=== PATIENT | male | born 1930 | race Caucasian/White ===

== ENCOUNTER 2016-08-10 12:28 | Inpatient (IN) | payer MEDICARE ==
[2016-08-10] MEDS ORDERED: Sodium Chloride 0.9% 1000 ML 1,000 ML IV SCH (12:45)
[2016-08-10 12:52] LABS: BASOPHIL % 0.9 % (0.0-0.4); Eosinophil % 7.1 % (0.00-5.0); Granulocytes % 64.5 % (36.0-66.0); Lymphocytes % 17.4 % (24.0-44.0); Mean Cell Volume 87.8 fl (78-100); Mean Corpuscular Hemoglobin 30.6 pg (26-32); Mean Platelet Volume 9.6 fl (6-9.5); Monocytes % 10.1 % (0.0-12.0); Platelet Count 185 K/mm3 (150-450); Red Blood Count 4.35 M/mm3 (4.1-5.6); Red Cell Distribution Width 13.3 % (11.5-14.0); White Blood Count 5.8 K/mm3 (4.0-10.5)
[2016-08-10] MEDS ORDERED: Sodium Chloride 0.9% 1000 ML 1,000 ML ONE (13:04)
--- NOTE | 2016-08-10 13:04 | ERPHSYRPT ---
- History of Present Illness Time Seen by Provider: 08/10/16 12:31 Source: patient, family (daughter) Patient Subjective Stated Complaint: SOB FOR THREE WEEKS ONLY ON EXERTION. ALSO HAVING DIFFICULTY SWALLOWING. HX HIATAL HERNIA. Triage Nursing Assessment: TO ROOM PER WC WITH DAUGHTER. SKIN DRY, PALE, LOOSE. ALSO HAVING DIZZINESS WITH STANDING. DAUGHTER STATES PATIENT RECENTLY HAVING DIFFICULTY SWALLOWING AND HAS BEEN UNABLE TO EAT FOR TWO DAYS. SCHEDULED TO SEE DR. ARREDONDO THIS TUESDAY FOR EXAM AND POSSIBLE EGD SOON. Physician History: CC: dizzy Hx: 86 y/o patient of Dr Valentino Villa. He has hx of "hiatal hernia." For the past three weeks has been unable to swallow almost anything, including liquids. He feels some weakness, some dizziness when upright, and short of breath when he is upright. Remote lung CA not treated which resolved. Has not had barium swallow nor EGD. Was planning to see Dr Moreno to arrange EGD but got to weak. Daughter feels he is dehydrated. Losing weight. No chest pain. Not particularly short of breath. No fever or chills. Timing/Duration: week(s) (few) Allergies/Adverse Reactions: No Known Drug Allergies Allergy (Unverified 08/10/16 12:52) Home Medications: Aspirin 81 gm Chew [Baby Aspirin 81 mg Chew] 81 mg PO DAILY 08/10/16 [ History] Famotidine [Pepcid] 40 mg PO HS 08/10/16 [History] Omeprazole 40 mg PO DAILY 08/10/16 [History] Pregabalin [Lyrica] 75 mg PO BID 08/10/16 [History] Tamsulosin HCl 0.4 mg [Flomax 0.4 MG] 0.4 mg PO DAILY 08/10/16 [History] Triamterene/Hydrochlorothiazid [Triamterene-Hctz 37.5-25 mg Tb] 1 each PO DAILY 08/10/16 [History] Hx Tetanus, Diphtheria Vaccination/Date Given: No Hx Influenza Vaccination/Date Given: No Hx Pneumococcal Vaccination/Date Given: No - Review of Systems Constitutional: Fatigue, Malaise, Weakness, Weight Loss, No Fever, No Chills Eyes: No Symptoms Ears, Nose, & Throat: No Symptoms Respiratory: Dyspnea (when upright), No Cough Cardiac: No Chest Pain, No Edema, No Palpitations, No Syncope Abdominal/Gastrointestinal: Vomiting (when tries to eat or drink), Dysphagia, Appetite Changes, No Nausea Genitourinary Symptoms: No Symptoms Musculoskeletal: No Symptoms Skin: No Rash Neurological: No Focal Weakness, No Headache All Other Systems: Reviewed and Negative - Past Medical History Pertinent Past Medical History: Yes ENT History: Cataracts Cardiac History: Aneurysm Respiratory History: Lung Cancer Musculoskeletal History: Other GI Medical History: Gallbladder Disease, Hemorrhoids, Hernia, Other - Past Surgical History Past Surgical History: Yes Cardiac: Vascular Surgery Gastrointestinal: Cholecystectomy, Hemorrhoidectomy, Hernia Repair Musculoskeletal: Orthopedic Surgery Other Surgical History: HIATAL HERNIA REPAIR, LEFT SHOULDER REPAIR, TUBES IN EARS, AAA STENT, NEURO-STIMULATOR, - Social History Smoking Status: Current every day smoker How long have you smoked: 73 Exposure to second hand smoke: No Drug Use: none Patient Lives Alone: Yes - Nursing Vital Signs Nursing Vital Signs: Initial Vital Signs Temperature Source Oral Pulse Rate 74 Respiratory Rate 18 Blood Pressure [Right Arm] 145/75 Pain Intensity 0 - Physical Exam General Appearance: alert, other (pleasant elderly man, hard o hearing) Eye Exam: PERRL/EOMI Ears, Nose, Throat Exam: dry mucous membranes Neck Exam: normal inspection, supple Respiratory Exam: crackles/rales (bases), No respiratory distress, No wheezing Cardiovascular Exam: regular rate/rhythm Gastrointestinal/Abdomen Exam: soft, No tenderness, No distention, No guarding Back Exam: normal inspection Extremity Exam: normal inspection, normal range of motion Neurologic Exam: alert, oriented x 3, cooperative, No motor deficits Skin Exam: warm, dry, No rash SpO2 Interpretation: normal SpO2: 94 Oxygen Delivery: Room Air - Course Nursing assessment & vital signs reviewed: Yes - Radiology Exams AAS X-ray Interpretation: Teleradiologist Report, Negative Ordered Tests: Active Orders 24 hr Category Date Time Status Box Printing Machine Operator STAT Care 08/10/16 13:14 Ordered Clean Catch Urine Specimen STAT Care 08/10/16 12:39 Active EKG-ER Only STAT Care 08/10/16 12:39 Active IV Insertion STAT Care 08/10/16 12:39 Active Orthostatic Vital Signs STAT Care 08/10/16 12:39 Active OBSTR/ACUTE ABDOMEN SERIES Stat Exams 08/10/16 12:40 Completed CBC W DIFF Stat Lab 08/10/16 12:45 Completed CMP Stat Lab 08/10/16 12:45 Received MAGNESIUM Stat Lab 08/10/16 13:13 Ordered TROPONIN Stat Lab 08/10/16 12:45 Received UA Stat Lab 08/10/16 12:39 Ordered Medication Summary Generic Name Dose Route Start Last Admin Trade Name Lonnie PRN Reason Stop Dose Admin Sodium Chloride 1,000 mls @ 100 mls/hr 08/10/16 12:45 Sodium Chloride 0.9% 1000 Ml IV 09/09/16 12:44 .Q10H ANISHA Potassium Chloride 100 mls @ 50 mls/hr 08/10/16 13:15 Potassium Chloride 20 Meq In Water 100ml IV 08/10/16 15:14 STAT ONE Lab/Rad Data: Laboratory Result Diagrams 08/10/16 12:45 08/10/16 12:45 Laboratory Results 08/10/16 08/10/16 Range/Units 12:45 12:45 WBC 5.8 (4.0-10.5) K/mm3 RBC 4.35 (4.1-5.6) M/mm3 Hgb 13.3 (12.5-18.0) gm/dl Hct 38.2 L (42-50) % MCV 87.8 (78-100) fl MCH 30.6 (26-32) pg MCHC 34.8 (32-36) g/dl RDW 13.3 (11.5-14.0) % Plt Count 185 (150-450) K/mm3 MPV 9.6 H (6-9.5) fl Gran % 64.5 (36.0-66.0) % Lymphocytes % 17.4 L (24.0-44.0) % Monocytes % 10.1 (0.0-12.0) % Eosinophils % 7.1 H (0.00-5.0) % Basophils % 0.9 (0.0-0.4) % Basophils # 0.05 (0-0.4) Sodium 131 L (136-145) mEq/L Potassium 2.7 L* (3.5-5.1) mEq/L Chloride 93 L (98-107) mEq/L Carbon Dioxide 32.0 (21-32) mEq/L Anion Gap 9.4 (5-15) MEQ/L BUN 25 H (9-20) mg/dL Creatinine 2.00 H (0.55-1.30) mg/dl Estimated GFR 34 ML/MIN Glucose 113 H (70-110) MG/DL Calcium 10.4 H (8.5-10.1) mg/dL Total Bilirubin 0.6 (0.2-1.0) mg/dL AST 23 (15-37) U/L ALT 12 (12-78) U/L Alkaline Phosphatase 89 (46-116) U/L Serum Total Protein 8.4 H (6.4-8.2) gm/dL Albumin 3.8 (3.4-5.0) g/dL - Progress Progress Note: 08/10/16 13:24 The patient is stable. Unable to complete 12 lead due to nerve stimulator implant. Called Dr Pennington for Dr Villa. Will admit to IP, supplement K, IVF, and consult surgeon for EGD. Will see patient in: hospital (full admit) Counseled pt/family regarding: lab results, diagnosis, need for follow-up, rad results - Departure Time of Disposition: 13:26 Departure Disposition: In-patient Admission Clinical Impression: Dehydration, Dysphagia, Hypotension, Orthostasis Condition: Fair Critical Care Time: No Referrals: BILL VILLA [Primary Care Provider] -
--- NOTE | 2016-08-10 13:09 | XRAY ---
Indication: Vomiting, dizziness, short of breath. Comparison: None 2 views of the abdomen demonstrates mild diffuse scattered colonic fecal debris predominantly in the left hemicolon. No focal bowel dilatation, distortion, or free air. Previous cholecystectomy. Scattered basilar calcifications including aortobiiliac stent graft. Osseous structures intact with multilevel spinal degenerative spondylosis and right-sided spinal stimulator device and leads terminating lower thoracic level. Single frontal chest demonstrates left hemidiaphragm elevation with adjacent pleural parenchymal thickening/scarring. Minimal right apical fibrosis/scarring with a few calcified granulomas. No focal infiltrate, consolidation, or large effusion. Heart is not enlarged. Bony thorax intact with mild spinal degenerative changes. Impression: 1. Abdomen nonacute and nonobstructed with fecal stasis and postsurgical changes. 2. Nonacute one view chest with chronic features.
[2016-08-10 13:10] LABS: ALBUMIN 3.8 g/dL (3.4-5.0); ANION GAP 9.4 MEQ/L (5-15); BILIRUBIN,TOTAL 0.6 mg/dL (0.2-1.0); Total Protein 8.4 gm/dL (6.4-8.2)
[2016-08-10 13:14] LABS: Potassium 2.7 mEq/L (3.5-5.1)
[2016-08-10] MEDS ORDERED: POTASSIUM CHLORIDE 20 mEq IN WATER 100ML 100 ML IV ONE ×3 (13:15→19:47)
[2016-08-10] MEDS ORDERED: Lactated Ringers 0 ML IV ONE (16:39)
[2016-08-10] MEDS ORDERED: MORPHINE SULFATE 2 MG INJ IV PRN (16:54)
[2016-08-10 18:33] LABS: ANION GAP 11.1 MEQ/L (5-15); Carbon Dioxide 28.7 mEq/L (21-32)
[2016-08-10 18:36] LABS: Potassium 2.8 mEq/L (3.5-5.1)
[2016-08-10 18:37] LABS: TROPONIN 0.069 ng/ml (0.000-0.056)
[2016-08-10 19:24] LABS: COMPLETE URINE MICROSCOPIC? YES; Collection Type CLEAN CATCH; Epithelial Cells FEW /HPF (FEW)
[2016-08-10] MEDS: Lyrica 25 MG PO SCH ×2 (20:44→23:13)
[2016-08-10] MEDS: Pepcid 20 MG VIAL IV SCH (21:19)
[2016-08-10] MEDS ORDERED: NON-FORMULARY ITEM (Pregabalin [Lyrica] 75 MG) PO SCH (22:00)
[2016-08-11] MEDS: DEXTROSE 5%-NACL 0.9% 1000 ML + KCL 40 MEQ 1,000 ML IV SCH ×4 (04:52→17:05)
[2016-08-11 06:34] LABS: ANION GAP 8.9 MEQ/L (5-15); Carbon Dioxide 28.6 mEq/L (21-32); Potassium 3.3 mEq/L (3.5-5.1)
[2016-08-11 06:44] LABS: TROPONIN 0.142 ng/ml (0.000-0.056)
--- NOTE | 2016-08-11 07:45 | CONS ---
CONSULT DATE: 08/10/2016 HISTORY: Apparently he has had problems swallowing since March. The past three weeks he had problems swallowing almost every day, some dehydration and weakness. He is supposed to see Dr. Moreno in the office on but he got too weak so he was admitted for dehydration and some weight loss. He said he has not had a colonoscopy before. He had some endoscopy back in the s but no recent upper endoscopy or barium swallow. PAST MEDICAL HISTORY: Some sort of history of cancer although unclear about that. History of hiatal hernia. It sounds like he had repair in the chest the past according to the patient's description. He had cataract surgery. He had tonsillectomy in the past. Hiatal hernia repair back in the . Left inguinal hernia and hemorrhoidectomy. He had cholecystectomy, left shoulder repair, tubes in his ears. He had abdominal aortic stent placed in 2009. He had [employer] nerve stimulator in 2009 that was placed apparently for problems with pain in his feet according to the patient. He had left cataract in 2011. HOME MEDICATIONS: Famotidine, omeprazole, Lyrica, Flomax, triamterene hydrochlorothiazide. He had taken some aspirin but otherwise he had not been on any other blood thinners. ALLERGIES: NKDA. FAMILY HISTORY: Negative for esophageal, stomach or colon cancer. REVIEW OF SYSTEMS: Twelve systems reviewed as noted above. He denies any current abdominal pain. No chest pain or shortness of breath currently, mainly the dysphagia and history of some vomiting. He did have some elevated troponins in the emergency room. PHYSICAL EXAMINATION: GENERAL: No acute distress. A pleasant, hard of hearing gentleman. HEENT: Sclera nonicteric. NECK: No JVD. CHEST: Equal excursion, nonlabored breathing. CVS: Regular rhythm and pulse. ABDOMEN: Soft, nontender. No peritoneal signs. EXTREMITIES: No significant edema. NEURO: Alert, moving extremities grossly symmetrically. No gross motor deficits noted. LAB DATA AND TESTS: It looks like his white blood cell count is 5.8, hemoglobin 13.3, PLT 185,000. IMPRESSION: Dysphagia, history of vomiting. He may have esophageal narrowing. Either way I feel he likely would benefit from upper endoscopy for further evaluation and plan to possibly do this evening but given his elevated troponin anesthesia feels he needs cardiac clearance first so will await cardiac clearance and then proceed with upper endoscopy. If unable to obtain cardiac clearance then might need consideration of a barium swallow. Otherwise general risk of any EGD or dilatation described. Risks of bleeding or infection, risk of aspiration or pneumonia, risk of perforation possibility of morbidty/mortality, possibility of inability to improve his situation as well as general risk of aches and pains but not limited to. At this time await cardiac clearance and then proceed with consideration of upper endoscopy, possible dilatation pending operative findings. Dr. Kia Fraga is doing cases here tomorrow and she will evaluate him them. Otherwise await cardiac clearance. Likely one of my partners will proceed with the procedure as I am going out of town in a day and a half if he is not cleared before then. Otherwise continue medical management.
--- NOTE | 2016-08-11 07:51 | ECHO ---
Transthoracic echocardiographic examination and color Doppler was done on 08/10/2016. INDICATION: Abnormal EKG, preoperative cardiac evaluation. IMPRESSION: 1) HYPOKINESIA OF THE APEX WITH ESTIMATED GLOBAL LEFT VENTRICULAR EJECTION FRACTION OF 60%. 2) MILD MITRAL REGURGITATION. 3) MILD AORTIC REGURGITATION. 4) AORTIC VALVE SCLEROSIS. 5) LEFT VENTRICULAR DIASTOLIC DYSFUNCTION. 6) MILD TRICUSPID REGURGITATION. RIGHT VENTRICULAR SYSTOLIC PRESSURE OF 65 MM OF MERCURY SUGGESTIVE OF MODERATE TO SEVERE PULMONARY HYPERTENSION. The left ventricle is visualized and demonstrated hypokinesia of the apex. Estimated global left ventricular ejection fraction 60%. There is mild left ventricular hypertrophy. The mitral valve is seen and this opens adequately. There is mild mitral regurgitation Left atrium is normal. The aortic valve is sclerotic. There is no significant gradient across the left ventricular outflow tract. There is mild aortic regurgitation. Right side chambers are mildly dilated. There is mild tricuspid regurgitation. Right ventricular systolic pressure of 65 mm of Mercury. The tissue Doppler study of the lateral mitral annulus suggestive of left ventricular diastolic dysfunction.
--- NOTE | 2016-08-11 08:04 | CONS ---
CONSULT DATE: 08/10/2016 BRIEF HISTORY: This is an 86 year-old male who was seen for preoperative cardiac evaluation prior to planned EGD. The patient was admitted primarily for progressive dysphagia and admitted for upper endoscopy. He also has lost about 20 pounds. He currently denies any chest pains. No shortness of breath. He was told to have had a heart attack in the past. CARDIAC RISK FACTORS: Negative for diabetes. No hypertension. He smokes about two to three packs of cigarettes a day. No known hyperlipidemia. REVIEW OF SYSTEMS: FISHERIES INSPECTOR: There is no history of stroke or seizures. RESPIRATORY: He denies any history of chronic obstructive pulmonary disease but continues to smoke. GI: Progressive dysphagia. : Negative for dysuria or hematuria. PERIPHERAL VASCULAR: No history of deep venous thrombosis or claudication. SKIN: No active dermatological problems. HEMATOLOGY: No blood dyscrasia or transfusion. PAST SURGICAL HISTORY: Cholecystectomy, hernia repair, shoulder surgery, endovascular repair for abdominal aortic aneurysm. SOCIAL HISTORY: He is a . He has no significant alcohol intake. He used to farm. PHYSICAL EXAMINATION: His blood pressure is 145/75, heart rate 74, respirations 14. GENERAL: The patient is an elderly male who is alert, oriented, somewhat hard of hearing. HEENT: Mild pale conjunctivae. NECK: No significant JVD. No carotid bruit. CHEST: The breath sounds are diminished. CARDIAC: Heart tones are within normal. The rhythm is regular. There is a grade 2/6 mid systolic murmur. ABDOMEN: Soft with normal bowel sounds. No bruit. EXTREMITIES: No significant edema. Decreased distal pulses. LAB DATA AND DIAGNOSTIC TESTS: The EKG showed sinus rhythm with right bundle branch block. Troponin I is 0.06. The glomerular filtration rate is 34, creatinine 2.0. The echocardiogram shows a normal left ventricular systolic function with some apical hypokinesia. There is some evidence of moderate to severe pulmonary hypertension. IMPRESSION: In essence the patient is at low to intermediate risk for the planned procedure which is necessary as he has progressive dysphagia. The family is made aware. He does have significant pulmonary hypertension most likely secondary to chronic obstructive pulmonary disease from continued tobacco usage. I would continue with his current medical regimen.
[2016-08-11] MEDS ORDERED: POTASSIUM CHLORIDE 20 mEq IN WATER 100ML 100 ML IV ONE (08:06)
--- NOTE | 2016-08-11 08:08 | PCM.HP ---
History of Present Illness - Chief Complaint Chief Complaint: Dehydration; Dysphagia; Hypokalemia; Orthostasis Date: 08/11/16 History of Present Illness: is a 86 year old male. who has been suffering from several months of progressively worsening dyphagia initially he refused work up but then could no longer consistently swallow and was scheduled for EGD this week, but prior to that he has been unable to get anything down now and has become very weak and dehydrated and could not stand on his own so was brought to the ER. He has a long history of smoking and lives at home alone. He denies any chest pain or shortness of breath, palpitations or edema. - Review of Systems Constitutional: Fatigue, Lethargy, No Fever, No Chills Eyes: No Symptoms Respiratory: No Cough, No Short Of Breath Cardiac: No Chest Pain, No Edema, No Palpitations, No Syncope, No Orthopnea, No PND Abdominal/Gastrointestinal: No Abdominal Pain, No Nausea, No Vomiting, No Diarrhea Genitourinary Symptoms: No Dysuria Musculoskeletal: Arthralgias, No Back Pain, No Neck Pain, No Joint Redness, No Joint Pain, No Joint Swelling Skin: No Cellulitis, No Rash Neurological: Dizziness, Gait Changes, No Focal Weakness, No Seizure, No Sensory Changes Psychological: No Symptoms Endocrine: No Symptoms Hematologic/Lymphatic: No Symptoms Immunological/Allergic: No Symptoms Medications & Allergies Home Medications: Home Medication List Aspirin 81 gm Chew [Baby Aspirin 81 mg Chew] 81 mg PO DAILY 08/10/16 [ History Confirmed 08/10/16] Famotidine [Pepcid] 40 mg PO HS 08/10/16 [History Confirmed 08/10/16] Omeprazole 40 mg PO DAILY 08/10/16 [History Confirmed 08/10/16] Pregabalin [Lyrica] 75 mg PO BID 08/10/16 [History Confirmed 08/10/16] Tamsulosin HCl 0.4 mg [Flomax 0.4 MG] 0.4 mg PO DAILY 08/10/16 [History Confirmed 08/10/16] Triamterene/Hydrochlorothiazid [Triamterene-Hctz 37.5-25 mg Tb] 1 each PO DAILY 08/10/16 [History Confirmed 08/10/16] Dm/P-Ephed/Acetaminoph/Doxylam [Nyquil D Cold & Flu Liquid] 25 ml PO 0000 [History Confirmed 08/11/16] Non-Formulary Drug [Non-Formulary Item] 0.5 tab PO DAILY 08/11/16 [History Confirmed 08/11/16] Allergies/Adverse Reactions: Allergies Allergy/AdvReac Type Severity Reaction Status Date / Time Penicillins Allergy Verified 08/10/16 16:45 - Past Medical History Past Medical History: Yes Neurological History: No Pertinent History ENT History: Cataracts Cardiac History: Aneurysm Respiratory History: Lung Cancer Endocrine Medical History: No Pertinent History Musculoskelatal History: Other GI Medical History: Gallbladder Disease, Hemorrhoids, Hernia, Other Pyscho-Social History: No Pertinent History - Past Surgical History Past Surgical History: Yes Cardiac History: Vascular Surgery GI Surgical History: Cholecystectomy, Hemorrhoidectomy, Hernia Repair Musculskeletal Surgical Hx: Orthopedic Surgery Other Surgical History: HIATAL HERNIA REPAIR, Left Inguinal Hernia Repair, LEFT SHOULDER REPAIR, TUBES IN EARS, AAA STENT, NEURO-STIMULATOR, - Social History Smoking Status: Current every day smoker How long have you smoked: "79 years" Exposure to second hand smoke: Yes Alcohol: None Drug Use: none - Physical Exam Vital Signs: Vital Signs - 24 hr Temp Pulse Resp BP Pulse Ox 08/11/16 07:36 88 L 08/11/16 07:19 98.1 F 64 20 118/56 90 L 08/11/16 04:00 98.4 F 62 15 129/66 93 L 08/11/16 00:00 18 08/10/16 23:19 98.1 F 74 20 131/63 95 08/10/16 20:00 67 21 96 08/10/16 19:49 98.3 F 72 21 139/66 89 L 08/10/16 15:34 98.3 F 65 18 141/66 91 L Oxygen-Last 24 hours O2 Percentage 4 Liters = 36% O2 Percentage 4 Liters = 36% O2 Percentage 2 Liters = 28% General Appearance: no apparent distress, alert Neurologic Exam: alert, oriented x 3, cooperative, normal mood/affect, nml cerebellar function, nml station & gait, sensation nml, No motor deficits Eye Exam: PERRL/EOMI, eyes nml inspection Ears, Nose, Throat Exam: normal ENT inspection, pharynx normal, moist mucous membranes Neck Exam: normal inspection, non-tender, supple, full range of motion Respiratory Exam: normal breath sounds, lungs clear, No respiratory distress Cardiovascular Exam: regular rate/rhythm, normal heart sounds, normal peripheral pulses Gastrointestinal/Abdomen Exam: soft, normal bowel sounds, No tenderness, No mass Back Exam: normal inspection, normal range of motion, No CVA tenderness, No vertebral tenderness Extremity Exam: normal inspection, normal range of motion, pelvis stable Skin Exam: normal color, warm, dry, No rash Lymphatic Exam: No adenopathy Results - Labs Lab/Micro Results: Lab Results-Last 24 Hours 08/10/16 08/10/16 08/11/16 Range/Units 17:44 19:00 01:15 Sodium 133 L (136-145) mEq/L Potassium 2.8 L* 3.3 L (3.5-5.1) mEq/L Chloride 97 L (98-107) mEq/L Carbon Dioxide 28.7 (21-32) mEq/L Anion Gap 11.1 (5-15) MEQ/L BUN 23 H (9-20) mg/dL Creatinine 1.77 H (0.55-1.30) mg/dl Estimated GFR 39 ML/MIN Glucose 96 (70-110) MG/DL Calcium 10.0 (8.5-10.1) mg/dL Troponin I 0.069 H* (0.000-0.056) ng/ml Ur Collection Type CLEAN CATCH Urine Color YELLOW (YELLOW) Urine Appearance CLEAR (CLEAR) Urine pH 7.0 (5-6) Ur Specific Armstrong 1.010 (1.005-1.025) Urine Protein NEGATIVE (Negative) Urine Glucose (UA) NEGATIVE (NEGATIVE) mg/dL Urine Ketones NEGATIVE (NEGATIVE) Urine Nitrite NEGATIVE (NEGATIVE) Urine Bilirubin NEGATIVE (NEGATIVE) Urine Urobilinogen 0.2 (0-1) mg/dL Urine WBC (Auto) NEGATIVE (NEGATIVE) Urine RBC (Auto) TRACE NON-HEM (0-5) Marek/ul Urine Microscopic RBC 0-2 (0-2) /HPF Ur Epithelial Cells FEW (FEW) /HPF Specimen Received 08/10/16:1900 08/11/16 Range/Units 05:13 Sodium 138 (136-145) mEq/L Potassium 3.3 L (3.5-5.1) mEq/L Chloride 104 (98-107) mEq/L Carbon Dioxide 28.6 (21-32) mEq/L Anion Gap 8.9 (5-15) MEQ/L BUN 20 (9-20) mg/dL Creatinine 1.70 H (0.55-1.30) mg/dl Estimated GFR 41 ML/MIN Glucose 100 (70-110) MG/DL Calcium 9.5 (8.5-10.1) mg/dL Troponin I 0.142 H* (0.000-0.056) ng/ml Ur Collection Type Urine Color (YELLOW) Urine Appearance (CLEAR) Urine pH (5-6) Ur Specific Armstrong (1.005-1.025) Urine Protein (Negative) Urine Glucose (UA) (NEGATIVE) mg/dL Urine Ketones (NEGATIVE) Urine Nitrite (NEGATIVE) Urine Bilirubin (NEGATIVE) Urine Urobilinogen (0-1) mg/dL Urine WBC (Auto) (NEGATIVE) Urine RBC (Auto) (0-5) Marek/ul Urine Microscopic RBC (0-2) /HPF Ur Epithelial Cells (FEW) /HPF Specimen Received - Other Procedures and Tests Respiratory Therapy 08/10/16 19:58 Oxygen NASAL CANNULA 2 lpm Assessment/Plan (1) Dysphagia Current Visit: Yes Status: Acute Assessment & Plan: surgery consulted with plan for EGD today. Dr. Schrader was consulted and read the Echo with the elevated troponins and his acute on chronic renal failure with dehydration no acute ekg findings and asymptomatic and his likely chronic intermittent hypoxia from his copd resulting in pulmonary hypertension, he did put him at low intermediate risk for the EGD by surgery per his consult note Code(s): R13.10 - DYSPHAGIA, UNSPECIFIED (2) Dehydration Current Visit: Yes Status: Acute Assessment & Plan: improving, symptoms improving with hydration Code(s): E86.0 - DEHYDRATION (3) Hypotension Current Visit: Yes Status: Acute Code(s): I95.9 - HYPOTENSION, UNSPECIFIED (4) Hypokalemia Current Visit: Yes Status: Acute Assessment & Plan: additional 20 mEq IV today Code(s): E87.6 - HYPOKALEMIA (5) Acute on chronic kidney failure Current Visit: Yes Status: Acute Assessment & Plan: secondary to inadequate po intake from the dyphagia Code(s): N17.9 - ACUTE KIDNEY FAILURE, UNSPECIFIED; N18.9 - CHRONIC KIDNEY DISEASE, UNSPECIFIED (6) Elevated troponin Current Visit: Yes Status: Acute Code(s): R74.8 - ABNORMAL LEVELS OF OTHER SERUM ENZYMES (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
[2016-08-11] MEDS: Maxzide-25MG Tablet PO SCH (08:23)
[2016-08-11] MEDS: Pepcid 20 MG VIAL IV SCH ×2 (08:23→22:07)
[2016-08-11] MEDS: ECOTRIN 81 MG PO SCH (08:23)
[2016-08-11] MEDS: Flomax 0.4 MG PO SCH (08:23)
[2016-08-11] MEDS ORDERED: BABY ASPIRIN 81 MG CHEW PO SCH (10:00)
[2016-08-11] MEDS ORDERED: Maxzide 25MG PO SCH (10:00)
--- NOTE | 2016-08-11 12:08 | XRAY ---
Indication: Difficulty swallowing food. Single contrast esophagram performed in AP, oblique, and lateral planes. Patient ingested barium without miss swallow or aspiration. Esophagus is normal in course and caliber to the level of the GE junction where there is a "apple core like" stenosis worrisome for mass. There is little contrast emptying into the stomach even with upright imaging. Large amount of barium remains in the esophagus to the level of the clavicles. Examination was terminated at this point. 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 There remains large amount of barium in the esophagus, a potential risk for aspiration. Patient's floor nurse was informed and instructed to keep the patient semiupright. Recommend direct endoscopic evaluation. Approximately 0.9 minute fluoroscopy used. Comment: Telephone report was also given to the ordering clinician, Dr. Rayo at 1159 hrs. on August 11, 2016.
--- NOTE | 2016-08-11 15:12 | XRAY ---
Indication: Follow-up esophagram performed earlier today. Comparison: One day earlier. PA/lateral chest demonstrates clearing of the esophageal barium without aspiration. Remaining chest unchanged again hyperinflated with left hemidiaphragm elevation, left base pleural-parenchymal thickening/scarring, and right apical fibrosis/scarring. Heart is not enlarged. Impression: Stable nonacute chest with chronic features.
--- NOTE | 2016-08-11 15:16 | XRAY ---
Indication: Follow-up same day abnormal esophagram. KUB demonstrates antegrade movement of the barium throughout the small bowel loops without obstruction or extravasation. No barium in the distal esophagus. Stable cholecystectomy, aortobiiliac stent graft, and right-sided spinal stimulator device with leads. Impression: Small bowel barium without obstruction. Stable post surgical changes.
--- NOTE | 2016-08-11 16:52 | XRAY ---
Indication: Distal esophageal mass on esophagram. Preoperative evaluation. Multiple contiguous axial images obtained through the chest without contrast as ordered. Comparison: None Examination of the lung parenchyma demonstrates diffuse centrilobular pulmonary emphysema, subpleural cystic changes in the right lower lobe, and chunky right upper lobe calcified granulomas. Left hemidiaphragm elevation with adjacent pleural-parenchymal fibrosis/scarring. In the peripheral right lower lobe, there is 10 mm noncalcified nodule. Smaller 6-7 mm noncalcified nodule seen in the superior left lower lobe (image 37, series 3). Small focal platelike scarring/fibrosis in the anterior inferior right upper lobe and anterior minor fissure. No effusion. Heart is not enlarged. A few prominent mediastinal lymph nodes, largest precarinal measuring 1.4 x 2.5 cm. Right hilar calcified lymph nodes. Gastroesophageal junction demonstrates irregular circumferential wall thickening presumed known mass. Bony thorax demonstrates mild degenerative changes throughout the spine, T6 vertebral hemangioma, and old nonunited left posterior 8th rib fracture. Spinal stimulator leads terminate approximately T11 level. CT abdomen reported separately. Impression: 1. Right lower lobe 10 mm and left lower lobe subcentimeter noncalcified nodules. Findings possibly granulomatous as there is evidence for old granulomatous disease elsewhere. Cannot completely exclude malignancy. 2. Prominent precarinal lymph node, reactive versus malignant. 3. Gastroesophageal junction irregular wall thickening presumed known mass. 4. Diffuse pulmonary emphysema with right lower lobe subpleural cystic changes. 5. Left base pleural-parenchymal fibrosis/scarring with left hemidiaphragm elevation. 6. 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 CTDI 16.28
--- NOTE | 2016-08-11 16:55 | XRAY ---
Indication: Distal esophageal mass on same day esophagram. Preoperative exam. Multiple contiguous axial images obtained through the abdomen and pelvis without contrast as ordered. Comparison: None CT chest reported separately. Gastroesophageal junction demonstrates irregular wall thickening with stranding presumed mass as reported on same day esophagram. Noncontrasted stomach unremarkable. There is dense barium throughout the small bowel loops producing some artifact in the right abdomen. No focal bowel dilatation or obstruction. A few hepatic cysts, largest in the left lobe measuring 3 cm. Calcified splenic granulomas. Multiple bilateral renal cysts, largest left midpole measuring 1.8 cm. Bilateral renal linear calcifications felt to be vascular. Enlarged prostate gland impresses on the base of the urinary bladder. Previous cholecystectomy. No free fluid/air. Remaining pancreas, adrenal glands, and bladder appear unremarkable for noncontrast exam. Aortobiiliac stent grafts. Lack of IV contrast precludes further evaluation of stent grafts. Osseous structures intact with moderate degenerative changes throughout the spine including 4-5 mm L4 anterolisthesis on L5. There is a right gluteal spinal stimulator device with leads entering posterior to L2 segment. No ventral/inguinal hernia. Impression: 1. Gastroesophageal junction mass. 2. No acute intra-abdominal/pelvic abnormalities on this noncontrast exam. 3. Hepatic and bilateral renal cysts. 4. Enlarged prostate gland. 5. Spinal degenerative spondylosis including L4 grade 1 spondylolisthesis. 6. Aortobiiliac stent grafts and spinal stimulator device/leads. CTDI 19.37
[2016-08-11] MEDS: Lyrica 25 MG PO SCH ×2 (22:04→22:58)
[2016-08-12] MEDS: DEXTROSE 5%-NACL 0.9% 1000 ML + KCL 40 MEQ 1,000 ML IV SCH (03:56)
[2016-08-12] MEDS ORDERED: Versed 2 MG/2 ML Injection IV ONE (06:00)
[2016-08-12] MEDS ORDERED: Ketamine HCl 50 MG/ML IJ ONE (06:00)
[2016-08-12 06:13] LABS: Carbon Dioxide 26.9 mEq/L (21-32); Potassium 4.2 mEq/L (3.5-5.1)
[2016-08-12] MEDS: Pepcid 20 MG VIAL IV SCH (09:29)
[2016-08-12] MEDS ORDERED: Lactated Ringers 1,000 ML IV SCH (10:00)
[2016-08-12] MEDS: ECOTRIN 81 MG PO SCH (11:29)
[2016-08-12] MEDS: Flomax 0.4 MG PO SCH (11:30)
[2016-08-12] MEDS: Maxzide-25MG Tablet PO SCH (11:30)
[2016-08-12 15:55] VITALS: BP 133/85; PULSE 80
[2016-08-12 17:10] VITALS: O2SAT 92
--- NOTE | 2016-08-12 17:29 | PCM.DCORD ---
- Discharge Discharge Date: 08/12/16 (HOme with Hospice) Disposition: XFER OTHER Condition: Poor Prescriptions: Continue Tamsulosin HCl 0.4 mg [Flomax 0.4 MG] 0.4 mg PO DAILY Pregabalin [Lyrica] 75 mg PO BID Dm/P-Ephed/Acetaminoph/Doxylam [Nyquil D Cold & Flu Liquid] 25 ml PO 0000 Discontinued Omeprazole 40 mg PO DAILY Triamterene/Hydrochlorothiazid [Triamterene-Hctz 37.5-25 mg Tb] 1 each PO DAILY Aspirin 81 gm Chew [Baby Aspirin 81 mg Chew] 81 mg PO DAILY Famotidine [Pepcid] 40 mg PO HS Non-Formulary Drug [Non-Formulary Item] 0.5 tab PO DAILY Follow up with: BILL VILLA [Primary Care Provider] -
--- NOTE | 2016-08-12 17:36 | PCM.DS ---
Discharge Summary Date of Admission: 08/10/16 15:06 Date of Discharge: 08/12/16 Admitting Physician: BILL VILLA Primary Care Provider: BILL VILLA Allergies Allergies Penicillins Allergy (Verified 08/10/16 16:45) Hospital Summary - Hospital Course Hospital Course: has had progressive dysphagia was referred for egd but prior to egd was unable to swallow any liquids became very dehydrated and weak. He was brought to the ED and found to be dehydrated with hypotension and acute on chronic renal failure and severe hypokalemia. He was rehydrated an K was corrected and he felt much improved and much stronger. He had elevated troponin likely type 2 LA from the hypotension, hypokalemia and compounded by the renal failure but was not symptomstic and no ekg changes. He was seen and had echo with normal EF by Dr. Schrader. He had Barium swallow showing an esophageal mass confirmed by CT chest/abd/pelvis with some enlarged nodes. He had EGD with biopsy by Dr. Fracisco Moreno and egd appearence consistent with esophageal cancer. He was able to swallow coffee afterward. He was informed of all his treatment options. He refused G-tube or oncology referral and wants to go home with hospice. He is comfortable with no pain and no concerns and his daughters are going to take him home and Hospice is being contacted for referral at his and his daughter's request. We discussed pain and anxiety medication as needed and he does not want any now but in the future may and we discussed liquid morphine and ativan as options in the future but he will wait to see hospice for now. - Vitals & Intake/Output Vital Signs: Vital Signs Temperature 98.3 F 08/12/16 15:54 Pulse Rate 80 08/12/16 15:54 Respiratory Rate 20 08/12/16 16:00 Blood Pressure 133/85 08/12/16 15:54 O2 Sat by Pulse Oximetry 92 L 08/12/16 17:09 Oxygen-Last Documented O2 Percentage 2 Liters = 28% Intake & Output: Intake & Output 08/10/16 08/11/16 08/12/16 08/13/16 11:59 11:59 11:59 11:59 Intake Total 1143 2119 480 Output Total 800 1000 Balance 343 1119 480 Weight 71.668 kg 71.668 kg - Lab Result Diagrams: 08/10/16 12:45 08/12/16 05:08 Lab Results-Last 24 Hrs: Lab Results-Last 24 Hours 08/11/16 08/12/16 08/12/16 Range/Units 19:04 05:08 05:08 Sodium 143 (136-145) mEq/L Potassium 4.1 4.2 (3.5-5.1) mEq/L Chloride 108 H (98-107) mEq/L Carbon Dioxide 26.9 (21-32) mEq/L Anion Gap 12.0 (5-15) MEQ/L BUN 14 (9-20) mg/dL Creatinine 1.43 H (0.55-1.30) mg/dl Estimated GFR 50 ML/MIN Glucose 93 (70-110) MG/DL Calcium 9.4 (8.5-10.1) mg/dL Troponin I 0.040 (0.000-0.056) ng/ml - Radiology Exams Ordered Rad Exams-Entire Visit: Radiology Procedures Category Date Time Status ABDOMEN AND PELVIS W/0 CONTRAS [CT] Urgent Exams 08/11/16 15:41 Completed BARIUM SWALLOW ESOPHOGRAM Routine Exams 08/11/16 09:07 Completed CHEST 2 VIEWS (PA AND LAT) Urgent Exams 08/11/16 14:11 Completed CHEST WITHOUT CONTRAST [CT] Urgent Exams 08/11/16 15:41 Completed KUB Urgent Exams 08/11/16 14:47 Completed - Procedures and Test Procedures and Tests throughout Hospitalization: Therapy Orders & Screens 08/10/16 17:24 OT Screen per Nursing Assess Comment: Protocol Order Physician Instructions: Greater than 3 points order OT Admission Screening Reason For Exam: Triggered on Admission Diagnosis: Dehydration; Dysphagia; Hypokalemia; Orthostasis Open Wound/Cellutlitis/Pressure Ulcers: No Acute Fx/ORIF/Change in wt bearing status: No Severe MUSCULOSKELETAL pain: No ADL Dysfunction: Yes Acute CVA w/Hemiparesis/Hemiplegia: No Decreased Functional Mobility/Strength: Yes Sprain/Strain: No Acute Post-op Mobility Dysfunction: No Total Points: 4 PT Screen per Nursing Assess ONCE Comment: Protocol Order Physician Instructions: Greater than 3 points order PT Admission Screenin Reason For Exam: Triggered on Admission Diagnosis: Dehydration; Dysphagia; Hypokalemia; Orthostasis Open Wound/Cellutlitis/Pressure Ulcers: No Acute Fx/ORIF/Change in wt bearing status: No Severe MUSCULOSKELETAL pain: No ADL Dysfunction: Yes Acute CVA w/Hemiparesis/Hemiplegia: No Decreased Functional Mobility/Strength: Yes Sprain/Strain: No Acute Post-op Mobility Dysfunction: No Total Points: 4 Smoking Cessation Education ONCE Comment: Diagnosis: Dehydration; Dysphagia; Hypokalemia; Orthostasis Smoking Status: Current every day smoker How long have you smoked: "79 years" Have you smoked in the past 12 months: Yes Approximately how many cigarettes per day: 20 Do you dip or chew tobacco: No ST Screen per Nursing Assess Comment: Protocol Order Physician Instructions: Greater than [address] Admission Screening Reason For Exam: Triggered on Admission Diagnosis: Dehydration; Dysphagia; Hypokalemia; Orthostasis CVA/Dyshpagia/Aphasia: Yes Cognitive Deficits: No Dehydration/Nutrition Deficit: Yes Reflux: No Oral-Motor Difficulties: No Pneumonia: No Retirement Resident: No Total Points: 10 08/10/16 19:58 Oxygen NASAL CANNULA 2 lpm Comment: Diagnosis: Dehydration; Dysphagia; Hypokalemia; Orthostasis Discharge Exam General Appearance: no apparent distress Neurologic Exam: alert, oriented x 3, cooperative, normal mood/affect, No motor deficits Skin Exam: warm, dry Eye Exam: pale conjunctivae Ears, Nose, Throat Exam: moist mucous membranes Neck Exam: non-tender, supple Respiratory Exam: normal breath sounds, lungs clear Cardiovascular Exam: regular rate/rhythm, murmur Gastrointestinal/Abdomen Exam: soft, normal bowel sounds, No tenderness, No distention Extremity Exam: normal inspection, No calf tenderness, No pedal edema Final Diagnosis/Problem List - Final Discharge Diagnosis/Problem (1) Esophageal cancer Current Visit: Yes Status: Acute Assessment & Plan: pathology pending (2) Dysphagia Current Visit: Yes Status: Acute (3) Dehydration Current Visit: Yes Status: Resolved (4) Hypotension Current Visit: Yes Status: Resolved (5) Hypokalemia Current Visit: Yes Status: Resolved (6) Acute on chronic kidney failure Current Visit: Yes Status: Resolved (7) Elevated troponin Current Visit: Yes Status: Resolved (8) COPD (chronic obstructive pulmonary disease) with emphysema Current Visit: Yes Status: Chronic (9) Non-ST elevation myocardial infarction (NSTEMI), type 2 Current Visit: Yes Status: Acute - Discharge Disposition: XFER OTHER Condition: Poor Prescriptions: Continue Tamsulosin HCl 0.4 mg [Flomax 0.4 MG] 0.4 mg PO DAILY Pregabalin [Lyrica] 75 mg PO BID Dm/P-Ephed/Acetaminoph/Doxylam [Nyquil D Cold & Flu Liquid] 25 ml PO 0000 Discontinued Omeprazole 40 mg PO DAILY Triamterene/Hydrochlorothiazid [Triamterene-Hctz 37.5-25 mg Tb] 1 each PO DAILY Aspirin 81 gm Chew [Baby Aspirin 81 mg Chew] 81 mg PO DAILY Famotidine [Pepcid] 40 mg PO HS Non-Formulary Drug [Non-Formulary Item] 0.5 tab PO DAILY Follow up with: BILL VILLA [Primary Care Provider] -
--- NOTE | 2016-08-13 11:01 | OP ---
SURGERY DATE/TIME: 08/12/2016 1439 PREOPERATIVE DIAGNOSIS: Esophageal occlusion. POSTOPERATIVE DIAGNOSIS: Esophageal occlusion almost certainly malignant. PROCEDURE: EGD with limited biopsy. SURGEON: Quinton Moreno M.D. ANESTHESIA: MAC. COMPLICATIONS: None. CONDITION: Stable. INDICATION: A patient requiring evaluation. DESCRIPTION OF PROCEDURE: Taken to endoscopy. MAC sedation provided. The scope was introduced. The esophagus is totally occluded at 32 cm. Despite this there was not a leading edge of tumor. The tumor is totally tucked in. It had this nature of being tucked in with almost napkin in. Blindly the biopsy placed four times into a BB-sized intraluminal cavity and vaccine customer representative biopsies submitted. It is unclear whether the pathology will be positive or not. 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
== END 2016-08-12 18:10 | disposition home or self-care (01) | DRG 374 ==
LOC: ED 12:28 → MED SURG 15:06 → OBSVTOIN 15:06
PROVIDERS: ADMIT Family Medicine; ATTEND Family Medicine
PROC: 0DB58ZX Excision of Esophagus, Via Natural or Artificial Opening Endoscopic, Diagnostic (ICD-10-PCS; principal; 2016-08-12)
DX: C15.9 Malignant neoplasm of esophagus, unspecified (principal); I21.4 Non-ST elevation (NSTEMI) myocardial infarction; N17.9 Acute kidney failure, unspecified; R13.10 Dysphagia, unspecified; E86.0 Dehydration; I95.9 Hypotension, unspecified; E87.6 Hypokalemia; N18.9 Chronic kidney disease, unspecified; R79.89 Other specified abnormal findings of blood chemistry; J44.9 Chronic obstructive pulmonary disease, unspecified; Z79.899 Other long term (current) drug therapy; Z85.118 Personal history of other malignant neoplasm of bronchus and lung; Z72.0 Tobacco use
CPT/HCPCS: 00740; 36000; 36415; 71020; 71250; 74000; 74022; 74176; 74220; 80048; 80053; 81000; 83735; 84132; 84484; 85025; 88305; 93041; 93306; 94760; 99100; 99285; J2250; J3480; A9270-GY